=== PATIENT | female | born 1995 | race Caucasian/White ===

== ENCOUNTER 2017-01-23 11:17 | Inpatient (IN) | payer MEDICAID ==
[2017-01-23] MEDS ORDERED: STADOL 2 MG IV PRN (11:41)
[2017-01-23] MEDS ORDERED: Zofran 4 MG/2 ML VIAL IV PRN (11:41)
[2017-01-23] MEDS ORDERED: Nubain 10 MG/ML IV PRN (11:41)
[2017-01-23] MEDS ORDERED: TYLENOL EXTRA STRENGTH 500 MG PO PRN (11:41)
[2017-01-23] MEDS ORDERED: XYLOCAINE 1% HCL 20 ML MDV IJ PRN (11:41)
[2017-01-23] MEDS ORDERED: Phenergan 25 MG INJ IV PRN (11:41)
[2017-01-23] MEDS ORDERED: Sodium Chloride 0.9% 1000 ML 1,000 ML ONE (11:42)
[2017-01-23] MEDS ORDERED: OB EPIDURAL NAROPIN/SUFENTANIL IN NACL EPIDURAL PRN (11:44)
[2017-01-23] MEDS ORDERED: Ephedrine Sulfate 50 MG/ML IV PRN (11:44)
[2017-01-23] MEDS ORDERED: Lactated Ringers 1,000 ML IV ONE (11:44)
[2017-01-23] MEDS ORDERED: PITOCIN 30 UNITS/ LR 500 ML 500 ML IV SCH (12:00)
[2017-01-23] MEDS ORDERED: Lactated Ringers 1,000 ML IV SCH (12:00)
[2017-01-23 12:07] LABS: BASOPHIL % 0.2 % (0.0-0.4); Eosinophil % 0.4 % (0.00-5.0); Granulocytes % 71.1 % (36.0-66.0); Lymphocytes % 18.7 % (24.0-44.0); Mean Cell Volume 93.9 fl (78-100); Mean Platelet Volume 10.1 fl (6-9.5); Monocytes % 9.6 % (0.0-12.0); Platelet Count 242 K/mm3 (150-450); Red Blood Count 3.63 M/mm3 (4.1-5.4); Red Cell Distribution Width 13.2 % (11.5-14.0)
[2017-01-23 14:36] VITALS: O2SAT 98
[2017-01-23] MEDS ORDERED: Dermoplast Spray TP PRN (17:10)
[2017-01-23] MEDS ORDERED: NORCO 5/325 MG PO PRN (17:10)
[2017-01-23] MEDS ORDERED: Ambien 10 MG PO PRN (17:10)
[2017-01-23] MEDS ORDERED: Mylicon 80MG PO PRN (17:10)
[2017-01-23] MEDS ORDERED: CORTISONE 1% CREAM TP PRN (17:10)
[2017-01-23] MEDS ORDERED: LANSINOH 40 GM TOP PRN (17:10)
[2017-01-23] MEDS ORDERED: TUCKS TP PRN (17:10)
[2017-01-23] MEDS ORDERED: Rhogam Plus 300 MCG IM ONE (19:22)
[2017-01-23] MEDS: Colace 100 MG PO SCH (22:10)
[2017-01-24 05:50] LABS: BASOPHIL % 0.2 % (0.0-0.4); Eosinophil % 0.5 % (0.00-5.0); Granulocytes % 70.6 % (36.0-66.0); Lymphocytes % 20.6 % (24.0-44.0); Mean Cell Volume 95.8 fl (78-100); Mean Corpuscular Hemoglobin 30.2 pg (26-32); Mean Platelet Volume 10.1 fl (6-9.5); Monocytes % 8.1 % (0.0-12.0); Platelet Count 198 K/mm3 (150-450); Red Blood Count 3.31 M/mm3 (4.1-5.4); Red Cell Distribution Width 12.9 % (11.5-14.0); White Blood Count 9.6 K/mm3 (4.0-10.5)
[2017-01-24] MEDS: MOTRIN 400 MG PO PRN ×2 (07:03→13:02)
[2017-01-24] MEDS: FERREX 150 PO SCH (10:06)
[2017-01-24] MEDS: Colace 100 MG PO SCH (10:06)
[2017-01-24] MEDS: TYLENOL EXTRA STRENGTH 500 MG PO PRN (15:40)
[2017-01-25] MEDS: TYLENOL EXTRA STRENGTH 500 MG PO PRN (02:04)
[2017-01-25] MEDS: Colace 100 MG PO SCH ×2 (02:06→11:36)
--- NOTE | 2017-01-25 08:22 | PCM.DS ---
Discharge Summary Date of Admission: 01/23/17 11:17 Admitting Physician: VIBHA CARUSO Consults: Consults on Case 01/23/17 11:44 Notify Anesthesia Provider PRN 01/23/17 17:11 Notify Physician ROUTINE Primary Care Provider: VIBHA CARUSO Allergies Allergies No Known Drug Allergies Allergy (Verified 01/23/17 13:47) Hospital Summary - Hospital Course Hospital Course: Pt is 21 yo who came in at 39wk 2d in active labor. After AROM she dilated and delivered an 8lb 0oz viable baby boy. No vaginal lacerations requiring repair. She recovered uneventfully. Just requiring motrin for pain. She is . Denies dizziness when standing. Bleeding is decreasing. She will be discharged home today when baby is 48 h old. - Vitals & Intake/Output Vital Signs: Vital Signs Temperature 97.9 F 01/25/17 03:00 Pulse Rate 66 01/25/17 03:00 Respiratory Rate 18 01/25/17 03:00 Blood Pressure 109/67 01/25/17 03:00 O2 Sat by Pulse Oximetry 98 01/23/17 13:00 Intake & Output: Intake & Output 01/22/17 01/23/17 01/24/17 01/25/17 11:59 11:59 11:59 11:59 Intake Total 5001 3400 Output Total 1000 Balance 4001 3400 Weight 72.575 kg - Lab Result Diagrams: 01/24/17 05:39 Discharge Exam General Appearance: no apparent distress, alert Neurologic Exam: oriented x 3, cooperative Skin Exam: normal color, warm, dry, No rash Ears, Nose, Throat Exam: moist mucous membranes Neck Exam: normal inspection Respiratory Exam: normal breath sounds, lungs clear, No crackles/rales, No rhonchi, No wheezing Cardiovascular Exam: regular rate/rhythm, normal heart sounds, No murmur Gastrointestinal/Abdomen Exam: soft, normal bowel sounds, other (fundus firm over), No distention Extremity Exam: normal inspection, No pedal edema, No swelling Final Diagnosis/Problem List - Final Discharge Diagnosis/Problem (1) Spontaneous vaginal delivery Current Visit: No Status: Acute Assessment & Plan: Doing great. Home today. F/u with me in 4-6 wks. (2) Anemia Current Visit: Yes Status: Acute Assessment & Plan: mild, hgb 10.0 after delivery. Will send her home on low dose of iron for 2 weeks. - Discharge Disposition: Home, Self-Care Condition: Stable Prescriptions: New Ferrous Sulfate 325 mg [Feosol 325 mg] 325 mg PO DAILY #14 tablet Continue Vits W-Ca,Fe,FA(<1Mg) [] 1 each PO DAILY Follow up with: VIBHA CARUSO [Primary Care Provider] - 1 Week
[2017-01-25] MEDS: FERREX 150 PO SCH (11:36)
[2017-01-25 18:12] VITALS: BP 114/72; PULSE 69
== END 2017-01-25 18:15 | disposition home or self-care (01) | DRG 775 ==
LOC: OBSVTOIN 11:17 → OB 11:17
PROVIDERS: ADMIT Family Medicine; ATTEND Family Medicine
PROC: 10E0XZZ Delivery of Products of Conception, External Approach (ICD-10-PCS; principal; 2017-01-23)
DX: O75.5 Delayed delivery after artificial rupture of membranes (principal); Z3A.39 39 weeks gestation of pregnancy; Z37.0 Single live birth; D64.9 Anemia, unspecified
CPT/HCPCS: 01967; 36415; 80307; 85025; 85461; 86850; 86870; 86900; 86901; 94799; 96372; G0378; J2590; J2790; J2795; A9270-GY

== ENCOUNTER 2018-02-23 10:48 | Emergency (ER) | payer MEDICAID ==
[2018-02-23 11:09] VITALS: O2SAT 99
[2018-02-23] MEDS ORDERED: Sodium Chloride 0.9% 1000 ML 1,000 ML IV STA (11:17)
--- NOTE | 2018-02-23 11:17 | ERPHSYRPT ---
- History of Present Illness Time Seen by Provider: 02/23/18 11:11 Patient Subjective Stated Complaint: arms and legs are numb and she passed out Triage Nursing Assessment: Pt c/o of numbness in bilateral arms and legs upon waking up this morning, reports passing out while she was getting dressed and also after she was walking through the house, I pricked her finger for an accucheck and she flinched so she felt the poke, hx of same problems in the past at this ER, vitals wnl, diminished strength in arms and legs, PERRL, pulses normal Physician History: 22 y/o white female presents with bilat upper and lower ext numbness since this am. pt feels she might dehydrated. pt passed out twice this am. pt walked into the ED on her own. pt was drinking etoh last pm. similar episode in past after etoh consumption per pt. given ivf and sx resolved. Timing/Duration: today Severity: moderate Character of Deficits: new weakness Deficits: off balance, weak Baseline/Normal Cognition: alert oriented x 3 Current Cognition: alert oriented x 3 Baseline Gait: walks w/o assistance Associated Symptoms: weakness, paresthesia (bilat upper and lower ex), No loss of consciousness, No nausea, No vomiting Allergies/Adverse Reactions: No Known Drug Allergies Allergy (Verified 02/23/18 11:09) Home Medications: No Reportable Medications [No Reported Medications] 02/23/18 [History] Hx Tetanus, Diphtheria Vaccination/Date Given: No Hx Influenza Vaccination/Date Given: Yes Hx Pneumococcal Vaccination/Date Given: No - Review of Systems Constitutional: Weakness Eyes: No Symptoms Ears, Nose, & Throat: No Symptoms Respiratory: No Symptoms Cardiac: No Symptoms Abdominal/Gastrointestinal: No Symptoms Genitourinary Symptoms: No Symptoms Musculoskeletal: No Symptoms Skin: No Symptoms Neurological: Parasthesia Psychological: No Symptoms Endocrine: No Symptoms Hematologic/Lymphatic: No Symptoms Immunological/Allergic: No Symptoms All Other Systems: Reviewed and Negative - Past Medical History Pertinent Past Medical History: No Neurological History: No Pertinent History ENT History: No Pertinent History Cardiac History: No Pertinent History Respiratory History: No Pertinent History Endocrine Medical History: No Pertinent History Musculoskeletal History: No Pertinent History GI Medical History: No Pertinent History History: No Pertinent History Psycho-Social History: No Pertinent History Female Reproductive Disorders: No Pertinent History, Other Other Medical History: been to hospital in the past for syncope episodes. hypoglycemic - Past Surgical History Past Surgical History: No Neuro Surgical History: No Pertinent History Cardiac: No Pertinent History Respiratory: No Pertinent History Gastrointestinal: No Pertinent History Genitourinary: No Pertinent History Musculoskeletal: No Pertinent History Female Surgical History: No Pertinent History - Social History Smoking Status: Current every day smoker How long have you smoked: 10 years Exposure to second hand smoke: Yes Drug Use: marijuana Patient Lives Alone: No - Female History Hx Last Menstrual Period: 02/17/2018 Hx Now: No - Nursing Vital Signs Nursing Vital Signs: Initial Vital Signs Temperature 97.8 F 02/23/18 10:55 Pulse Rate 73 02/23/18 10:55 Blood Pressure 128/79 02/23/18 10:55 O2 Sat by Pulse Oximetry 99 02/23/18 10:55 Pain Scale Pain Intensity 0 - Jocelyn Coma Scale Best Eye Response (Jocelyn): (4) open spontaneously Best Verbal Response (Jocelyn): (5) oriented Best Motor Response (Jocelyn): (6) obeys commands Jocelyn Total: 15 - Physical Exam General Appearance: no apparent distress, alert, anxiety Eye Exam: bilateral eye: normal inspection, PERRL, EOMI Ears, Nose, Throat Exam: normal ENT inspection, TMs normal, dry mucous membranes Neck Exam: normal inspection, non-tender, supple, full range of motion Respiratory: normal breath sounds, lungs clear, airway intact, No chest tenderness, No respiratory distress, No accessory muscle use, No rhonchi, No wheezing, No stridor Cardiovascular: regular rate/rhythm, normal heart sounds, normal peripheral pulses Gastrointestinal: soft, normal bowel sounds, No tenderness, No guarding, No rebound Pelvic Exam: not done Rectal Exam: not done Back Exam: normal inspection, normal range of motion, No CVA tenderness, No vertebral tenderness Extremity Exam: normal inspection, normal range of motion, pelvis stable Mental Status: alert, oriented x 3, 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 Exam: normal hearing, normal speech Coordination/Gait: normal finger to nose, normal gait Motor/Sensory: no motor deficit, no sensory deficit Skin Exam: normal color, warm SpO2 Interpretation: normal SpO2: 99 Oxygen Delivery: Room Air Ordered Tests: Active Orders 24 hr Category Date Time Status Clean Catch Urine Specimen STAT Care 02/23/18 11:17 Active IV Insertion STAT Care 02/23/18 11:17 Active HEAD WITHOUT CONTRAST [CT] Stat Exams 02/23/18 11:25 Taken Alcohol [ETHYL ALCOHOL] Stat Lab 02/23/18 11:31 Completed CBC W DIFF Stat Lab 02/23/18 11:31 Completed CMP Stat Lab 02/23/18 11:31 Completed CULTURE,URINE Stat Lab 02/23/18 11:31 Received HCG,QUALITATIVE URINE Stat Lab 02/23/18 11:29 Completed UA W/RFX UR CULTURE Stat Lab 02/23/18 11:31 Completed Urine Triage Profile Stat Lab 02/23/18 11:29 Completed Medication Summary Discontinued Medications Generic Name Dose Route Start Last Admin Trade Name Elaina PRN Reason Stop Dose Admin Sodium Chloride 1,000 mls @ 999 mls/hr 02/23/18 11:17 02/23/18 12:44 Sodium Chloride 0.9% 1000 Ml IV 02/23/18 12:17 Infused .Q1H1M STA Infusion Sodium Chloride Confirm 02/23/18 11:31 Sodium Chloride 0.9% 1000 Ml Administered 02/23/18 11:32 Dose 1,000 mls @ ud .ROUTE .[facility] Lab/Rad Data: Laboratory Result Diagrams 02/23/18 11:31 02/23/18 11:31 Laboratory Results 02/23/18 02/23/18 02/23/18 Range/Units 11:31 11:31 11:31 WBC 5.6 (4.0-10.5) K/mm3 RBC 4.31 (4.1-5.4) M/mm3 Hgb 13.8 (12.0-16.0) gm/dl Hct 42.5 (35-47) % MCV 98.6 (78-100) fl MCH 32.0 (26-32) pg MCHC 32.5 (32-36) g/dl RDW 13.2 (11.5-14.0) % Plt Count 318 (150-450) K/mm3 MPV 9.6 H (6-9.5) fl Gran % 60.3 (36.0-66.0) % Eos # (Auto) 0.10 (0-0.5) Absolute Lymphs (auto) 1.48 (1.0-4.6) Absolute Monos (auto) 0.64 (0.0-1.3) Lymphocytes % 26.3 (24.0-44.0) % Monocytes % 11.4 (0.0-12.0) % Eosinophils % 1.8 (0.00-5.0) % Basophils % 0.2 (0.0-0.4) % Absolute Granulocytes 3.39 (1.4-6.9) Basophils # 0.01 (0-0.4) Sodium 141 (137-145) mmol/L Potassium 3.6 (3.5-5.1) mmol/L Chloride 103 (98-107) mmol/L Carbon Dioxide 27 (22-30) mmol/L Anion Gap 15.5 H (5-15) MEQ/L BUN 15 (7-17) mg/dL Creatinine 0.61 (0.52-1.04) mg/dL Estimated GFR > 60.0 ML/MIN Glucose 104 (74-106) mg/dL Calcium 9.5 (8.4-10.2) mg/dL Total Bilirubin 1.00 (0.2-1.3) mg/dL AST 21 (14-36) U/L ALT 18 (0-35) U/L Alkaline Phosphatase 60 (38-126) U/L Serum Total Protein 7.2 (6.3-8.2) g/dL Albumin 4.2 (3.5-5.0) g/dL Urine Color (YELLOW) Urine Appearance (CLEAR) Urine pH (5-6) Ur Specific Bronson (1.005-1.025) Urine Protein (Negative) Urine Ketones (NEGATIVE) Urine Blood (0-5) Jensen/ul Urine Nitrite (NEGATIVE) Urine Bilirubin (NEGATIVE) Urine Urobilinogen (0-1) mg/dL Ur Leukocyte Esterase (NEGATIVE) Urine WBC (Auto) (0-5) /HPF Urine RBC (Auto) (0-2) /HPF U Epithel Cells (Auto) (FEW) /HPF Urine Bacteria (Auto) (NEGATIVE) /HPF Amorphous Crystals (NEGATIVE) /HPF Urine Mucus (Auto) (NEGATIVE) /HPF Urine Culture Reflexed (NO) Urine Glucose (NEGATIVE) mg/dL Urine HCG, Qual (Negative) Urine Opiates Level (NEGATIVE) Ur Methadone (NEGATIVE) Urine Barbiturates (NEGATIVE) Ur Phencyclidine (PCP) (NEGATIVE) Urine Amphetamine (NEGATIVE) U Benzodiazepine Level (NEGATIVE) Urine Cocaine (NEGATIVE) Urine Marijuana (THC) (NEGATIVE) Ethyl Alcohol < 10 (0-10) mg/dL 02/23/18 02/23/18 02/23/18 Range/Units 11:31 11:29 11:29 WBC (4.0-10.5) K/mm3 RBC (4.1-5.4) M/mm3 Hgb (12.0-16.0) gm/dl Hct (35-47) % MCV (78-100) fl MCH (26-32) pg MCHC (32-36) g/dl RDW (11.5-14.0) % Plt Count (150-450) K/mm3 MPV (6-9.5) fl Gran % (36.0-66.0) % Eos # (Auto) (0-0.5) Absolute Lymphs (auto) (1.0-4.6) Absolute Monos (auto) (0.0-1.3) Lymphocytes % (24.0-44.0) % Monocytes % (0.0-12.0) % Eosinophils % (0.00-5.0) % Basophils % (0.0-0.4) % Absolute Granulocytes (1.4-6.9) Basophils # (0-0.4) Sodium (137-145) mmol/L Potassium (3.5-5.1) mmol/L Chloride (98-107) mmol/L Carbon Dioxide (22-30) mmol/L Anion Gap (5-15) MEQ/L BUN (7-17) mg/dL Creatinine (0.52-1.04) mg/dL Estimated GFR ML/MIN Glucose (74-106) mg/dL Calcium (8.4-10.2) mg/dL Total Bilirubin (0.2-1.3) mg/dL AST (14-36) U/L ALT (0-35) U/L Alkaline Phosphatase (38-126) U/L Serum Total Protein (6.3-8.2) g/dL Albumin (3.5-5.0) g/dL Urine Color YELLOW (YELLOW) Urine Appearance TURBID (CLEAR) Urine pH 6.0 (5-6) Ur Specific Bronson 1.020 (1.005-1.025) Urine Protein NEGATIVE (Negative) Urine Ketones NEGATIVE (NEGATIVE) Urine Blood NEGATIVE (0-5) Jensen/ul Urine Nitrite NEGATIVE (NEGATIVE) Urine Bilirubin NEGATIVE (NEGATIVE) Urine Urobilinogen 2 (0-1) mg/dL Ur Leukocyte Esterase NEGATIVE (NEGATIVE) Urine WBC (Auto) 0-2 (0-5) /HPF Urine RBC (Auto) 0-2 (0-2) /HPF U Epithel Cells (Auto) MODERATE (FEW) /HPF Urine Bacteria (Auto) MODERATE (NEGATIVE) /HPF Amorphous Crystals MANY (NEGATIVE) /HPF Urine Mucus (Auto) MODERATE (NEGATIVE) /HPF Urine Culture Reflexed YES (NO) Urine Glucose NEGATIVE (NEGATIVE) mg/dL Urine HCG, Qual NEGATIVE (Negative) Urine Opiates Level NEGATIVE (NEGATIVE) Ur Methadone NEGATIVE (NEGATIVE) Urine Barbiturates NEGATIVE (NEGATIVE) Ur Phencyclidine (PCP) NEGATIVE (NEGATIVE) Urine Amphetamine POSITIVE (NEGATIVE) U Benzodiazepine Level NEGATIVE (NEGATIVE) Urine Cocaine NEGATIVE (NEGATIVE) Urine Marijuana (THC) POSITIVE (NEGATIVE) Ethyl Alcohol (0-10) mg/dL - Progress Progress: improved, re-examined Progress Note: 02/23/18 12:48 ct brain-no acute intracranial process - Departure Time of Disposition: 12:48 Departure Disposition: Home Clinical Impression: Altered mental status Condition: Stable Critical Care Time: No Referrals: VIBHA CARUSO [Primary Care Provider] - Additional Instructions: drink plenty of fluids. avoid any and all illicit drug use. follow up with primary doctor for further management
[2018-02-23] MEDS ORDERED: Sodium Chloride 0.9% 1000 ML 1,000 ML ONE (11:31)
[2018-02-23 11:53] LABS: Amphetamine,Urine POSITIVE (NEGATIVE); Barbiturate,Urine NEGATIVE (NEGATIVE); Benzodiazepine,Urine NEGATIVE (NEGATIVE); Cocaine,Urine NEGATIVE (NEGATIVE); Methadone,Urine NEGATIVE (NEGATIVE); Opiate,Urine NEGATIVE (NEGATIVE); PCP,Urine NEGATIVE (NEGATIVE); THC,Urine POSITIVE (NEGATIVE)
[2018-02-23 11:55] LABS: ALBUMIN 4.2 g/dL (3.5-5.0); ALKALINE PHOSPHATASE 60 U/L (38-126); ANION GAP 15.5 MEQ/L (5-15); BLOOD UREA NITROGEN 15 mg/dL (7-17); CHLORIDE 103 mmol/L (98-107); Calcium 9.5 mg/dL (8.4-10.2); Carbon Dioxide 27 mmol/L (22-30); Creatinine 1 0.61 mg/dL (0.52-1.04); Glucose 104 mg/dL (74-106); Potassium 3.6 mmol/L (3.5-5.1); SGOT/AST 21 U/L (14-36); SGPT/ALT 18 U/L (0-35); SODIUM 141 mmol/L (137-145); Total Protein 7.2 g/dL (6.3-8.2)
[2018-02-23 11:56] LABS: Amourphous Crystal MANY /HPF (NEGATIVE); Appearance TURBID (CLEAR); Bacteria MODERATE /HPF (NEGATIVE); Bilirubin NEGATIVE (NEGATIVE); Blood NEGATIVE Ery/ul (0-5); Epithelial Cells MODERATE /HPF (FEW); Glucose NEGATIVE (NEGATIVE); Ketones NEGATIVE (NEGATIVE); Leukocyte Esterase NEGATIVE (NEGATIVE); Mucus MODERATE /HPF (NEGATIVE); Nitrite NEGATIVE (NEGATIVE); Protein,Urine Dip NEGATIVE (Negative); RBC 0-2 /HPF (0-2); Urobilinogen 2 mg/dL (0-1); WBC 0-2 /HPF (0-5)
[2018-02-23 12:25] LABS: BASOPHIL % 0.2 % (0.0-0.4); Basophil (Absolute #) 0.01 (0-0.4); Eosinophil % 1.8 % (0.00-5.0); Granulocytes % 60.3 % (36.0-66.0); Hematocrit 42.5 % (35-47); Hemoglobin 13.8 gm/dl (12.0-16.0); Lymphocyte (Absolute #) 1.48 (1.0-4.6); Lymphocytes % 26.3 % (24.0-44.0); Mean Cell Volume 98.6 fl (78-100); Mean Corpuscular Hgb Concent. 32.5 g/dl (32-36); Mean Platelet Volume 9.6 fl (6-9.5); Monocyte (Absolute #) 0.64 (0.0-1.3); Monocytes % 11.4 % (0.0-12.0); Platelet Count 318 K/mm3 (150-450); Red Blood Count 4.31 M/mm3 (4.1-5.4); Red Cell Distribution Width 13.2 % (11.5-14.0); White Blood Count 5.6 K/mm3 (4.0-10.5)
[2018-02-23 13:28] VITALS: BP 126/82; PULSE 72
--- NOTE | 2018-02-23 18:20 | XRAY ---
Indication: Syncope, dizziness, and arm/leg numbness following head injury. Multiple contiguous axial images obtained through the head without contrast. Comparison: None Normal appearing brain parenchyma, ventricles, and bony calvarium. Visualized paranasal sinuses and mastoid air cells are clear. Impression: Normal CT head without contrast exam. Comment: Preliminary interpretation was made by [facility]. No discrepancy. CTDI 52.08
== END 2018-02-23 12:50 | disposition home or self-care (01) ==
LOC: ED 10:48
DX: R41.82 Altered mental status, unspecified (principal); R20.0 Anesthesia of skin; R53.1 Weakness
CPT/HCPCS: 36415; 70450; 80053; 80307; 81001; 84703; 85025; 87086; 96360; 99284; G0480

== ENCOUNTER 2020-05-10 16:50 | Emergency (ER) | payer MEDICAID, OTHER ==
[2020-05-10] MEDS ORDERED: Augmentin 875-125 Tablet PO ONE (17:11)
[2020-05-10] MEDS ORDERED: Adacel Vial IM ONE ×2 (17:11→17:16)
[2020-05-10] MEDS ORDERED: Augmentin 875-125 Tablet ONE (17:15)
--- NOTE | 2020-05-10 17:18 | ERPHSYRPT ---
- History of Present Illness Time Seen by Provider: 05/10/20 17:00 Source: patient Exam Limitations: no limitations Patient Subjective Stated Complaint: dog bite to R hand Triage Nursing Assessment: pt to ED c/o dog bite to R hand that occured yest raynaay. pt has one puncture wound to center of palm on R hand. rates 3/10 pain now that feels sharp and does not radiate. no diff with ROM. Physician History: Patient is a 24-year-old female presents to our ED for evaluation and treatment of a dog bite to her right hand. Patient was bitten by a family member's dog yesterday. The dog is fully vaccinated. Tetanus is not up-to-date. No other injuries reported. Patient is otherwise healthy. She voices no other complaints or concerns at this time. No upper extremity numbness tingling or weakness. No hand swelling at this time. No lymphadenopathy. Pain rated 3 out of 10 at its worst. Patient currently declines pain medication as she is not in any discomfort. Patient voices no other complaints or concerns at this time. Occurred: yesterday Method of Injury: other (Dog bite) Quality: sharpness Severity of Pain-Max: moderate Severity of Pain-Current: mild Extremities Pain Location: hand: right Modifying Factors: Improves With: movement Associated Symptoms: none Allergies/Adverse Reactions: No Known Drug Allergies Allergy (Verified 05/10/20 17:03) Hx Tetanus, Diphtheria Vaccination/Date Given: No Hx Influenza Vaccination/Date Given: No Hx Pneumococcal Vaccination/Date Given: No Immunizations Up to Date: No Travel Risk - International Travel Have you traveled outside of the country in past 3 weeks: No - Coronavirus Screening Are you exhibiting any of the following symptoms?: No Close contact with a COVID-19 positive Pt in past 14-21 Days: No - Review of Systems Constitutional: No Symptoms, No Fever, No Chills Eyes: No Symptoms Ears, Nose, & Throat: No Symptoms Respiratory: No Symptoms, No Cough, No Dyspnea Cardiac: No Symptoms, No Chest Pain, No Edema, No Syncope Abdominal/Gastrointestinal: No Symptoms, No Abdominal Pain, No Nausea, No Vomiting, No Diarrhea Genitourinary Symptoms: No Symptoms, No Dysuria Musculoskeletal: No Symptoms, No Back Pain, No Neck Pain Skin: No Symptoms, No Rash Neurological: No Symptoms, No Dizziness, No Focal Weakness, No Sensory Changes Psychological: No Symptoms Endocrine: No Symptoms Hematologic/Lymphatic: No Symptoms Immunological/Allergic: No Symptoms All Other Systems: Reviewed and Negative - Past Medical History Pertinent Past Medical History: Yes Neurological History: No Pertinent History ENT History: No Pertinent History Cardiac History: No Pertinent History Respiratory History: No Pertinent History Endocrine Medical History: No Pertinent History Musculoskeletal History: No Pertinent History GI Medical History: No Pertinent History History: No Pertinent History Psycho-Social History: No Pertinent History Female Reproductive Disorders: No Pertinent History, Other Other Medical History: been to hospital in the past for syncope episodes. hypoglycemic - Past Surgical History Past Surgical History: No Neuro Surgical History: No Pertinent History Cardiac: No Pertinent History Respiratory: No Pertinent History Gastrointestinal: No Pertinent History Genitourinary: No Pertinent History Musculoskeletal: No Pertinent History Female Surgical History: No Pertinent History - Social History Smoking Status: Light tobacco smoker How long have you smoked: 10 years Exposure to second hand smoke: Yes Drug Use: none Patient Lives Alone: No - Female History Hx Last Menstrual Period: 2 weeks ago Hx Now: No - Nursing Vital Signs Nursing Vital Signs: Initial Vital Signs Temperature 98.2 F 05/10/20 16:55 Pulse Rate 88 05/10/20 16:55 Respiratory Rate 18 05/10/20 16:55 Blood Pressure 125/61 05/10/20 16:55 O2 Sat by Pulse Oximetry 100 05/10/20 16:55 Pain Scale Pain Intensity 3 - Physical Exam General Appearance: no apparent distress, alert, other (Patient sitting up in bed. She is conversant well-appearing and in no acute distress.) Eyes, Ears, Nose, Throat Exam: moist mucous membranes Neck Exam: normal inspection, non-tender, supple, full range of motion Cardiovascular/Respiratory Exam: chest non-tender, normal breath sounds, regular rate/rhythm, no respiratory distress Abdominal Exam: non-tender, soft, No guarding Back Exam: normal inspection, normal range of motion, No vertebral tenderness Shoulder Exam: normal inspection, non-tender, no evidence of injury Elbow/Forearm Exam: normal inspection, non-tender, no evidence of injury, normal ROM Wrist Exam: normal inspection, non-tender, no evidence of injury, normal ROM Hand Exam: normal ROM, laceration (There is a small puncture wound at the dorsal aspect the patient's right hand. No lymphangitis. No lymphadenopathy. No swelling. The area is minimally tender. Patient denies foreign body sensation in her hand. Compartments are soft. Cap refill less than 2 seconds.), No limited ROM, No nail injury, No stiffness, No swelling Neuro/Tendon Exam: normal sensation, normal motor functions Mental Status Exam: alert, oriented x 3, cooperative Skin Exam: normal color, warm, dry SpO2 Interpretation: normal SpO2: 100 O2 Delivery: Room Air - Course Nursing assessment & vital signs reviewed: Yes Ordered Tests: Medication Summary Discontinued Medications Generic Name Dose Route Start Last Admin Trade Name Elaina PRN Reason Stop Dose Admin Amoxicillin/Clavulanate Potassium 875 mg 05/10/20 17:11 05/10/20 17:17 Augmentin 875-125 Tablet PO 05/10/20 17:12 875 mg STAT ONE Administration Amoxicillin/Clavulanate Potassium Confirm 05/10/20 17:15 Augmentin 875-125 Tablet Administered 05/10/20 17:16 Dose 875 mg .ROUTE .[facility]-MED ONE Diphtheria/Tetanus/Acell Pertussis 0.5 ml 05/10/20 17:11 05/10/20 17:17 Adacel Vial IM 05/10/20 17:12 0.5 ml .ONCE ONE Administration Diphtheria/Tetanus/Acell Pertussis Confirm 05/10/20 17:16 Adacel Vial Administered 05/10/20 17:17 Dose 0.5 ml IM .STK-MED ONE - Progress Progress: improved Progress Note: 05/10/20 17:26 Patient reassessed. She feels well. Patient continues to decline pain medication. At this point there is no indication for x-ray. Patient denies foreign body sensation in her hand. The extremity is neurovascular intact distally. Extremities pink warm well perfused. Patient received a tetanus update. Patient received a dose of Augmentin. A prescription for Augmentin was forwarded the patient's pharmacy. Patient agrees to follow-up with her primary care doctor within 48 hours for reevaluation. She voices no other complaints or concerns at this time. Counseled pt/family regarding: diagnosis, need for follow-up - Departure Departure Disposition: Home Clinical Impression: Dog bite Condition: Stable Critical Care Time: No Referrals: VIBHA SABILLON [Primary Care Provider] - Additional Instructions: Discharge/Care Plan MITRA LAWRENCE was seen on 05/10/20 in the Emergency Room. The patient was counseled regarding Diagnosis,Lab results, Imaging studies, need for follow up and when to return to the Emergency Room. Prescriptions given: Discharge Note I have spoken with the patient and/or caregivers. I have explained the patient's condition, diagnosis and treatment plan based on the information available to me at this time. I have answered the patient's and/or caregiver's questions and addressed any concerns. The patient and/or caregivers have as good understanding of the patient's diagnosis, condition and treatment plan as can be expected at this point. The vital signs have been stable. The patient's condition is stable and appropriate for discharge from the emergency department. The patient will pursue further outpatient evaluation with the primary care physician or other designated or consulting physician as outlined in the discharge instructions. The patient and/or caregivers are agreeable to this plan of care and follow-up instructions have been explained in detail. The patient and/or caregivers have received these instruction. The patient/and or caregivers are aware that any significant change in condition or worsening of symptoms should prompt an immediate return to this or the closest emergency department or call 911. Prescriptions: Amox Tr/Potass Clav. 875 mg [Augmentin 875-125 Tablet] 875 mg PO BID 7 Days #14 tablet
[2020-05-10 17:38] VITALS: BP 117/58; PULSE 84; O2SAT 98
== END 2020-05-10 17:36 | disposition home or self-care (01) ==
LOC: ED 16:50
DX: S61.431A Puncture wound without foreign body of right hand, initial encounter (principal); W54.0XXA Bitten by dog, initial encounter; Y93.9 Activity, unspecified; Y92.9 Unspecified place or not applicable
CPT/HCPCS: 90471; 90715; 99283; A9270-GY

== ENCOUNTER 2022-05-22 15:15 | Emergency (ER) | payer OTHER ==
[2022-05-22 15:32] VITALS: BP 105/62; PULSE 74; O2SAT 98
--- NOTE | 2022-05-22 15:33 | ERPHSYRPT ---
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 She was dazed but she is states she does not think she passed out. However, she did have quite a bit of nosebleed which has stopped prior to arrival to the emergency department. She has a headache and her nose does hurt. There is no active bleeding at this time. She did not have a syncopal episode. She merely tripped over a bag of dog food. Occurred: just prior to arrival Reason for Fall: unknown Injuries/Pain Location: head, face Loss of Consciousness: no loss of consciousness Severity of Pain-Max: mild Severity of Pain-Current: mild Associated Symptoms (Fall): denies symptoms Allergies/Adverse Reactions: No Known Drug Allergies Allergy (Verified 05/22/22 15:33) Home Medications: No Reportable Medications [No Reported Medications] 05/22/22 [History] Hx Tetanus, Diphtheria Vaccination/Date Given: No Hx Influenza Vaccination/Date Given: No Hx Pneumococcal Vaccination/Date Given: No Travel Risk - International Travel Have you traveled outside of the country in past 3 weeks: No - Coronavirus Screening Are you exhibiting any of the following symptoms?: No Close contact with a COVID-19 positive Pt in past 14-21 Days: No - Review of Systems Constitutional: No Symptoms Eyes: No Symptoms Ears, Nose, & Throat: Nose Pain (Swelling) Respiratory: No Symptoms Cardiac: No Symptoms Abdominal/Gastrointestinal: No Symptoms Genitourinary Symptoms: No Symptoms Musculoskeletal: No Symptoms Skin: No Symptoms Neurological: No Symptoms Psychological: No Symptoms Endocrine: No Symptoms Hematologic/Lymphatic: No Symptoms Immunological/Allergic: No Symptoms All Other Systems: Reviewed and Negative - Past Medical History Pertinent Past Medical History: Yes Neurological History: No Pertinent History ENT History: No Pertinent History Cardiac History: No Pertinent History Respiratory History: No Pertinent History Endocrine Medical History: No Pertinent History Musculoskeletal History: No Pertinent History GI Medical History: No Pertinent History History: No Pertinent History Psycho-Social History: No Pertinent History Female Reproductive Disorders: No Pertinent History, Other Other Medical History: been to hospital in the past for syncope episodes. hypoglycemic - Past Surgical History Past Surgical History: No Neuro Surgical History: No Pertinent History Cardiac: No Pertinent History Respiratory: No Pertinent History Gastrointestinal: No Pertinent History Genitourinary: No Pertinent History Musculoskeletal: No Pertinent History Female Surgical History: No Pertinent History - Social History Smoking Status: Light tobacco smoker How long have you smoked: 10 years Exposure to second hand smoke: Yes Drug Use: none Patient Lives Alone: No - Nursing Vital Signs Nursing Vital Signs: Initial Vital Signs Temperature 98.3 F 05/22/22 15:24 Pulse Rate 74 05/22/22 15:24 Blood Pressure 105/62 05/22/22 15:24 O2 Sat by Pulse Oximetry 98 05/22/22 15:24 Pain Scale Pain Intensity 0 - Jocelyn Coma Score Best Eye Response (Jocelyn): (4) open spontaneously Best Verbal Response (Jocelyn): (5) oriented Best Motor Response ([place]): (6) obeys commands [place] Total: 15 - Physical Exam General Appearance: no apparent distress, alert, anxiety Head Injury: swelling (Nasal bridge), tenderness (Nasal bridge) Eye Exam: PERRL/EOMI, eyes nml inspection ENT Exam: airway nml Neck Exam: supple, trachea midline, full range of motion, normal alignment, normal inspection Respiratory/Chest Exam: No chest tenderness, No respiratory distress, No ecchymosis, No crepitus Gastrointestinal Exam: No tenderness Rectal Exam: not done Back Exam: normal inspection, normal range of motion, No CVA tenderness, No vertebral tenderness Extremity Exam: normal inspection, normal range of motion, capillary refill <3 sec, pelvis stable Neurologic Exam: alert, oriented x 3, cooperative, 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 CT scan without contrast of the facial bones shows mild paranasal sinus disease and mild septal deviation. No acute fractures or dislocations. This patient's medical issue is 1 of low complexity. The complexity and the work-up were determined by review of the patient's past medical history, review of the patient's medication list, review of the patient's drug allergy list, history of present illness and physical findings on examination. The work-up includes CAT scan of the head and facial bones. Discharge plan is to use Tylenol and ibuprofen for pain control. Ice pack to the nose. Follow-up with primary care physician for any further evaluation or management Counseled pt/family regarding: diagnosis, need for follow-up, rad results Medical Desision Making - Independent Historian Additional History obtained from: Family - Discussion of managment Agreed on:: Treatment plan, need for follow-up - Diagnostic Testing Diagnostic test were ordered, analyzed, and reviewed by me: Yes Radiological Interpretation: Reviewed by me, Teleradiologist Report - Risk of complications Low Risk: Low risk of morbidity from additional dx testing or treatment - Departure Departure Disposition: Home Clinical Impression: Fall with no significant injury, Contusion Condition: Stable Critical Care Time: No Referrals: ZAKIYA WYNN NP [Primary Care Provider] - Follow up/PCP as directed Additional Instructions: Ice pack to tender areas 3 times a day for the next 48 hours. Use Tylenol and ibuprofen for pain control. Follow-up with your primary care provider if you have any further concerns or medical issues.
--- NOTE | 2022-05-22 16:22 | XRAY ---
Indication: Facial injury following fall. Multiple contiguous axial images obtained through the head without contrast. Comparison: February 23, 2018 Normal appearing brain parenchyma, ventricles, and bony calvarium. Visualized paranasal sinuses and mastoid air cells are clear. Impression: Continued normal CT head without contrast exam.
--- NOTE | 2022-05-22 16:24 | XRAY ---
Indication: Facial injury following fall. Multiple contiguous axial images obtained through the facial bones. Sagittal and coronal reformatted images obtained. Comparison: None Axial images negative for acute fracture, suspicious bony lesions, or radiopaque foreign body. Orbits including roof, tejada, and floors intact. Minimal mucosal thickening floor of both maxillary sinuses. Remaining paranasal sinuses and nasal passages are clear. Mild nasal septal deviation to the right. Visualized noncontrasted soft tissues are unremarkable. Visualized cervical spine intact. Impression: Minimal paranasal sinus disease and mild nasoseptal deviation. Remaining CT facial bones normal.
== END 2022-05-22 16:40 | disposition home or self-care (01) ==
LOC: ED 15:15
DX: S00.33XA Contusion of nose, initial encounter (principal); W01.198A Fall on same level from slipping, tripping and stumbling with subsequent striking against other object, initial encounter; Y99.0 Civilian activity done for income or pay; R51.9 Headache, unspecified; Z72.0 Tobacco use
CPT/HCPCS: 70450; 70486; 99282

== ENCOUNTER 2023-09-13 13:46 | Observation (INO) | payer OTHER ==
[2023-09-13 14:28] VITALS: BP 125/63; PULSE 70; RESP 18; TEMP 98.3
[2023-09-13 15:59] LABS: Appearance Clear (Clear); Bacteria None Seen /HPF (None Seen); Bilirubin Negative (Negative); Blood Negative (Negative); Epithelial Cells None Seen /HPF (None Seen); Glucose, Urine Negative (Negative); Hyaline Casts NONE SEEN /LPF (0-2); Ketones Negative (Negative); Leukocyte Esterase Trace (Negative); Nitrite Negative (Negative); Protein,Urine Dip Negative (Negative); RBC 0-2 /HPF (0-5); Urobilinogen 0.2 mg/dL (0.2); WBC 0-2 /HPF (0-5)
[2023-09-13 16:03] LABS: ADD URINE CULTURE? NO (NO)
[2023-09-13 16:08] LABS: Hematocrit 34.7 % (34.1-44.9); Hemoglobin 11.7 g/dL (11.2-15.7); Mean Cell Volume 96.1 fL (79.4-94.8); Mean Corpuscular Hemoglobin 32.4 pg (25.6-32.2); Mean Corpuscular Hgb Concent. 33.7 g/dL (32.2-35.5); Mean Platelet Volume 9.3 fL (9.4-12.3); Platelet Count 291 x10^3/uL (182-369); Red Blood Count 3.61 x10^6/uL (3.93-5.22); Red Cell Distribution Width 12.1 % (11.7-14.4)
[2023-09-13 16:09] LABS: Barbiturate,Urine NEGATIVE (NEGATIVE); Benzodiazepine,Urine NEGATIVE (NEGATIVE); Cocaine,Urine NEGATIVE (NEGATIVE); Methadone,Urine NEGATIVE (NEGATIVE); Opiate,Urine NEGATIVE (NEGATIVE); PCP,Urine NEGATIVE (NEGATIVE); THC,Urine POSITIVE (NEGATIVE)
[2023-09-13 16:13] LABS: Amphetamine,Urine NEGATIVE (NEGATIVE)
--- NOTE | 2023-09-13 16:23 | XRAY ---
Indication: Late care. Anatomy. Cervical length. Two-dimensional OB ultrasound performed. Comparison: None for this . Single intrauterine currently in cephalic presentation. Normal four-chamber heart with heart rate 143 BPM. Normal three-vessel cord and cord insertion. Visualized head, spine, stomach, kidneys, and bladder are unremarkable. Anterior fundal placenta without abruption/previa. Cervical length is 3.8 cm. BPD measures 5.10 cm corresponding to 21 weeks 3 days. HC measures 18.49 cm corresponding to 20 weeks 6 days. AC measures 16.24 cm corresponding to 21 weeks 2 days. FL measures 3.47 cm corresponding to 21 weeks 0 days. KASSANDRA is 10.5 cm. Impression: Single viable intrauterine with mean gestational age 21 weeks 1 day. Expected date confinement is January 23, 2024. No gross anomalies.
[2023-09-13 16:57] LABS: Appearance Cloudy (Clear); Bilirubin Negative (Negative); Blood Negative (Negative); Glucose, Urine Negative (Negative); Ketones Negative (Negative); Leukocyte Esterase Negative (Negative); Nitrite Negative (Negative); Protein,Urine Dip Negative (Negative); Urobilinogen 0.2 mg/dL (0.2)
[2023-09-13 17:11] LABS: ABO TYPING O; Antibody Screen NEGATIVE (NEGATIVE); RH TYPING NEGATIVE
[2023-09-13 17:19] LABS: Bacteria None Seen /HPF (None Seen); Epithelial Cells None Seen /HPF (None Seen); Hyaline Casts NONE SEEN /LPF (0-2); RBC 0-2 /HPF (0-5); WBC 0-2 /HPF (0-5)
[2023-09-13 17:20] LABS: ADD URINE CULTURE? NO (NO)
[2023-09-13 17:26] LABS: CHLAMYDIA DNA NOT DETECTED (NEGATIVE); GC DNA Probe NOT DETECTED (NEGATIVE)
[2023-09-15 11:40] LABS: HBsAg Screen Negative (Negative); Hep C Virus Ab Non Reactive (Non Reactive); RPR Non Reactive (Non Reactive); Rubella Antibodies, IgG 1.81 index (Immune >0.99)
== END 2023-09-13 16:15 | disposition home or self-care (01) ==
LOC: OB 13:46
PROVIDERS: ADMIT Family Medicine; ATTEND Family Medicine
DX: Z34.82 Encounter for supervision of other normal pregnancy, second trimester (principal); Z3A.21 21 weeks gestation of pregnancy
CPT/HCPCS: 36415; 59025; 76805; 80307; 81001; 84443; 85027; 86592; 86762; 86850; 86900; 86901; 87340; 87491; 87591; 99213; G0472; 86803

== ENCOUNTER 2023-12-27 07:59 | Observation (INO) | payer OTHER ==
[2023-12-27 08:35] VITALS: BP 117/69; PULSE 100; RESP 17; TEMP 98.3; O2SAT 96
[2023-12-27 08:40] LABS: Appearance Clear (Clear); Bacteria None Seen /HPF (None Seen); Bilirubin Negative (Negative); Blood Negative (Negative); Epithelial Cells Rare /HPF (None Seen); Glucose, Urine Negative (Negative); Hyaline Casts NONE SEEN /LPF (0-2); Ketones Negative (Negative); Leukocyte Esterase Trace (Negative); Nitrite Negative (Negative); Protein,Urine Dip Negative (Negative); RBC 0-2 /HPF (0-5); Urobilinogen 0.2 mg/dL (0.2); WBC 0-2 /HPF (0-5)
[2023-12-27 08:56] LABS: Amphetamine,Urine NEGATIVE (NEGATIVE); Barbiturate,Urine NEGATIVE (NEGATIVE); Benzodiazepine,Urine NEGATIVE (NEGATIVE); Cocaine,Urine NEGATIVE (NEGATIVE); Methadone,Urine NEGATIVE (NEGATIVE); Opiate,Urine NEGATIVE (NEGATIVE); PCP,Urine NEGATIVE (NEGATIVE); THC,Urine POSITIVE (NEGATIVE)
== END 2023-12-27 09:50 | disposition home or self-care (01) ==
LOC: OB 07:59
PROVIDERS: ADMIT Family Medicine; ATTEND Family Medicine
DX: Z34.83 Encounter for supervision of other normal pregnancy, third trimester (principal); Z3A.36 36 weeks gestation of pregnancy
CPT/HCPCS: 80307; 81001; G0378; G0379

== ENCOUNTER 2024-01-12 06:43 | Inpatient (IN) | payer OTHER ==
[2024-01-12] MEDS ORDERED: Zofran 4 MG/2 ML VIAL IV PRN (07:04)
[2024-01-12] MEDS ORDERED: XYLOCAINE 1% HCL 20 ML MDV IJ PRN (07:04)
[2024-01-12] MEDS ORDERED: TYLENOL EXTRA STRENGTH 500 MG PO PRN (07:04)
[2024-01-12] MEDS ORDERED: Ephedrine Sulfate 50 MG/ML IV PRN (07:10)
[2024-01-12] MEDS: Lactated Ringers 1,000 ML IV ONE (07:18)
[2024-01-12 07:38] LABS: Absolute Neutrophil Ct (ANC) 5.83 x10^3/uL (1.56-6.13); BASOPHIL % 0.3 % (0.1-1.2); Basophil (Absolute #) 0.03 x10^3/uL (0.01-0.08); Eosinophil % 0.5 % (0.7-5.8); Eosinophil (Absolute #) 0.04 x10^3/uL (0.04-0.36); IMMATURE GRAN # 0.04 x10^3u/L (0.001-0.031); IMMATURE GRAN % 0.5 % (0.001-0.429); Lymphocyte (Absolute #) 1.83 x10^3/uL (1.18-3.74); Lymphocytes % 21.3 % (19.3-51.7); Mean Corpuscular Hemoglobin 31.3 pg (25.6-32.2); Mean Corpuscular Hgb Concent. 33.3 g/dL (32.2-35.5); Mean Platelet Volume 9.8 fL (9.4-12.3); Monocyte (Absolute #) 0.82 x10^3/uL (0.24-0.86); Monocytes % 9.5 % (4.7-12.5); Neutrophil % 67.9 % (34.0-71.1); Platelet Count 308 x10^3/uL (182-369); Red Blood Count 3.51 x10^6/uL (3.93-5.22); White Blood Count 8.6 x10^3/uL (3.98-10.04)
[2024-01-12] MEDS: FENTANYL 2 MCG-BUPIV 0.125%-NS 250 ML Epidur 250 ML EPIDURAL SCH (07:41)
[2024-01-12 07:51] LABS: Appearance Clear (Clear); Bacteria None Seen /HPF (None Seen); Bilirubin Negative (Negative); Blood Negative (Negative); Epithelial Cells None Seen /HPF (None Seen); Glucose, Urine Negative (Negative); Hyaline Casts NONE SEEN /LPF (0-2); Ketones Negative (Negative); Leukocyte Esterase Negative (Negative); Nitrite Negative (Negative); Ph 6.5 (4.6-8.0); Protein,Urine Dip Negative (Negative); RBC 0-2 /HPF (0-5); Urobilinogen 0.2 mg/dL (0.2); WBC 0-2 /HPF (0-5)
[2024-01-12 08:01] LABS: Amphetamine,Urine NEGATIVE (NEGATIVE); Barbiturate,Urine NEGATIVE (NEGATIVE); Benzodiazepine,Urine NEGATIVE (NEGATIVE); Cocaine,Urine NEGATIVE (NEGATIVE); Methadone,Urine NEGATIVE (NEGATIVE); Opiate,Urine NEGATIVE (NEGATIVE); PCP,Urine NEGATIVE (NEGATIVE); THC,Urine POSITIVE (NEGATIVE)
[2024-01-12] MEDS: Lactated Ringers 1,000 ML IV SCH (08:18)
[2024-01-12 09:15] LABS: ABO TYPING O; Antibody Screen NEGATIVE (NEGATIVE); RH TYPING NEGATIVE
[2024-01-12 11:17] LABS: Appearance Clear (Clear); Bacteria None Seen /HPF (None Seen); Bilirubin Negative (Negative); Blood Negative (Negative); Epithelial Cells None Seen /HPF (None Seen); Glucose, Urine Negative (Negative); Hyaline Casts NONE SEEN /LPF (0-2); Ketones Negative (Negative); Leukocyte Esterase Negative (Negative); Nitrite Negative (Negative); Ph 6.5 (4.6-8.0); Protein,Urine Dip Negative (Negative); RBC 0-2 /HPF (0-5); Specific Gravity 1.015 (1.005-1.030); Urobilinogen 0.2 mg/dL (0.2); WBC 0-2 /HPF (0-5)
[2024-01-12] MEDS: PITOCIN 30 UNITS/ LR 500 ML 30 UNITS/500 ML PLAST..BAG IV SCH (14:00)
[2024-01-12] MEDS ORDERED: Mylicon 80MG PO PRN (15:01)
[2024-01-12] MEDS ORDERED: Dulcolax 10 MG SUPP PR PRN (15:01)
[2024-01-12] MEDS ORDERED: Anucort-HC SUPPOSITORY PR PRN (15:01)
[2024-01-12] MEDS ORDERED: CORTISONE 1% CREAM TP PRN (15:01)
[2024-01-12] MEDS: LANSINOH 40 GM TOP PRN (16:08)
[2024-01-12] MEDS: TUCKS TP PRN (16:09)
[2024-01-12] MEDS: Dermoplast Spray TP PRN (16:09)
[2024-01-12] MEDS: TYLENOL EXTRA STRENGTH 500 MG PO PRN (19:39)
[2024-01-12] MEDS: Docusate Sodium 100 MG PO SCH (21:43)
[2024-01-12] MEDS: MOTRIN 400 MG PO PRN (21:45)
[2024-01-13 04:59] LABS: Absolute Neutrophil Ct (ANC) 7.63 x10^3/uL (1.56-6.13); BASOPHIL % 0.4 % (0.1-1.2); Basophil (Absolute #) 0.04 x10^3/uL (0.01-0.08); Eosinophil % 0.5 % (0.7-5.8); Eosinophil (Absolute #) 0.05 x10^3/uL (0.04-0.36); Hematocrit 30.9 % (34.1-44.9); Hemoglobin 10.2 g/dL (11.2-15.7); IMMATURE GRAN # 0.06 x10^3u/L (0.001-0.031); IMMATURE GRAN % 0.6 % (0.001-0.429); Lymphocyte (Absolute #) 2.42 x10^3/uL (1.18-3.74); Lymphocytes % 22.3 % (19.3-51.7); Mean Cell Volume 94.8 fL (79.4-94.8); Mean Corpuscular Hemoglobin 31.3 pg (25.6-32.2); Mean Platelet Volume 9.5 fL (9.4-12.3); Monocyte (Absolute #) 0.65 x10^3/uL (0.24-0.86); Neutrophil % 70.2 % (34.0-71.1); Platelet Count 248 x10^3/uL (182-369); Red Blood Count 3.26 x10^6/uL (3.93-5.22); Red Cell Distribution Width 12.8 % (11.7-14.4); White Blood Count 10.9 x10^3/uL (3.98-10.04)
--- NOTE | 2024-01-13 09:01 | PCM.DS ---
Discharge Summary Date of Admission: 01/12/24 08:38 Admitting Physician: SANDRA MCMILLAN Consults: Consults on Case 01/12/24 07:11 Notify Anesthesia Provider PRN 01/12/24 15:05 Navigation ONCE Primary Care Provider: SANDRA MCMILLAN Allergies Allergies No Known Drug Allergies Allergy (Verified 05/22/22 15:33) Hospital Summary - Hospital Course Hospital Course: 28yo arrived in spont labor at 38+wks, uncomplicated vaginal delivery with epidural. dustin po, mild lochia, no complaints. and doing great , well bonded with baby boy - Vitals & Intake/Output Vital Signs: Vital Signs Temperature 97.3 F 01/13/24 01:51 Pulse Rate 73 01/13/24 01:51 Respiratory Rate 18 01/13/24 01:51 Blood Pressure 107/55 01/13/24 01:51 O2 Sat by Pulse Oximetry 98 01/13/24 01:51 Intake & Output: Intake & Output 01/10/24 01/11/24 01/12/24 01/13/24 11:59 11:59 11:59 11:59 Output Total 150 450 Balance -150 -450 Weight 71.214 kg - Lab Result Diagrams: 01/13/24 04:56 Lab Results-Last 24 Hrs: Lab Results-Last 24 Hours 01/12/24 01/12/24 01/12/24 Range/Units 07:16 11:08 15:30 WBC (3.98-10.04) x10^3/uL RBC (3.93-5.22) x10^6/uL Hgb (11.2-15.7) g/dL Hct (34.1-44.9) % MCV (79.4-94.8) fL MCH (25.6-32.2) pg MCHC (32.2-35.5) g/dL RDW (11.7-14.4) % Plt Count (182-369) x10^3/uL MPV (9.4-12.3) fL Gran % (34.0-71.1) % Immature Gran % (Auto) (0.001-0.429) % Nucleat RBC Rel Count (0.00-0.2) % Eos # (Auto) (0.04-0.36) x10^3/uL Immature Gran # (Auto) (0.001-0.031) x10^3u/L Absolute Lymphs (auto) (1.18-3.74) x10^3/uL Absolute Monos (auto) (0.24-0.86) x10^3/uL Absolute Nucleated RBC (0.00-0.012) x10^3u/L Lymphocytes % (19.3-51.7) % Monocytes % (4.7-12.5) % Eosinophils % (0.7-5.8) % Basophils % (0.1-1.2) % Absolute Granulocytes (1.56-6.13) x10^3/uL Basophils # (0.01-0.08) x10^3/uL Urine Color Yellow (Yellow) Urine Appearance Clear (Clear) Urine pH 6.5 (4.6-8.0) Ur Specific [place] 1.015 (1.005-1.030) Urine Protein Negative (Negative) Urine Glucose (UA) Negative (Negative) mg/dL Urine Ketones Negative (Negative) Urine Blood Negative (Negative) Urine Nitrite Negative (Negative) Urine Bilirubin Negative (Negative) Urine Urobilinogen 0.2 (0.2) mg/dL Ur Leukocyte Esterase Negative (Negative) U Hyaline Cast (Auto) NONE SEEN (0-2) /LPF Urine Microscopic RBC 0-2 (0-5) /HPF Urine Microscopic WBC 0-2 (0-5) /HPF Ur Epithelial Cells None Seen (None Seen) /HPF Urine Bacteria None Seen (None Seen) /HPF Urine Culture Reflexed ORDERED SEPARATELY (NO) ABO Group O Rh Factor NEGATIVE Antibody Screen NEGATIVE (NEGATIVE) Screen SEE SEPARATE REPORT 01/13/24 Range/Units 04:56 WBC 10.9 H (3.98-10.04) x10^3/uL RBC 3.26 L (3.93-5.22) x10^6/uL Hgb 10.2 L (11.2-15.7) g/dL Hct 30.9 L (34.1-44.9) % MCV 94.8 (79.4-94.8) fL MCH 31.3 (25.6-32.2) pg MCHC 33.0 (32.2-35.5) g/dL RDW 12.8 (11.7-14.4) % Plt Count 248 (182-369) x10^3/uL MPV 9.5 (9.4-12.3) fL Gran % 70.2 (34.0-71.1) % Immature Gran % (Auto) 0.6 H (0.001-0.429) % Nucleat RBC Rel Count 0.0 (0.00-0.2) % Eos # (Auto) 0.05 (0.04-0.36) x10^3/uL Immature Gran # (Auto) 0.06 H (0.001-0.031) x10^3u/L Absolute Lymphs (auto) 2.42 (1.18-3.74) x10^3/uL Absolute Monos (auto) 0.65 (0.24-0.86) x10^3/uL Absolute Nucleated RBC 0.00 (0.00-0.012) x10^3u/L Lymphocytes % 22.3 (19.3-51.7) % Monocytes % 6.0 (4.7-12.5) % Eosinophils % 0.5 L (0.7-5.8) % Basophils % 0.4 (0.1-1.2) % Absolute Granulocytes 7.63 H (1.56-6.13) x10^3/uL Basophils # 0.04 (0.01-0.08) x10^3/uL Urine Color (Yellow) Urine Appearance (Clear) Urine pH (4.6-8.0) Ur Specific [place] (1.005-1.030) Urine Protein (Negative) Urine Glucose (UA) (Negative) mg/dL Urine Ketones (Negative) Urine Blood (Negative) Urine Nitrite (Negative) Urine Bilirubin (Negative) Urine Urobilinogen (0.2) mg/dL Ur Leukocyte Esterase (Negative) U Hyaline Cast (Auto) (0-2) /LPF Urine Microscopic RBC (0-5) /HPF Urine Microscopic WBC (0-5) /HPF Ur Epithelial Cells (None Seen) /HPF Urine Bacteria (None Seen) /HPF Urine Culture Reflexed (NO) ABO Group Rh Factor Antibody Screen (NEGATIVE) Screen Discharge Exam General Appearance: no apparent distress Neurologic Exam: alert, oriented x 3 Respiratory Exam: normal breath sounds, lungs clear, No respiratory distress Cardiovascular Exam: regular rate/rhythm, normal heart sounds Gastrointestinal/Abdomen Exam: soft, other (fundus firm), No tenderness, No mass Extremity Exam: normal inspection, normal range of motion Final Diagnosis/Problem List - Final Discharge Diagnosis/Problem (1) Spontaneous vaginal delivery Current Visit: No Status: Acute Code(s): O80 - ENCOUNTER FOR FULL-TERM UNCOMPLICATED DELIVERY - Discharge Disposition: Home, Self-Care Condition: Stable Prescriptions: New Vit86/Iron/Folic Acid [Nestabs Tablet] 1 each PO DAILY #30 tablet Follow up with: SANDRA MCMILLAN MD [Primary Care Provider] - 6 weeks
[2024-01-13] MEDS: FERREX 150 PO SCH (09:04)
[2024-01-13] MEDS: Adacel Vial IM ONE (09:04)
[2024-01-14 02:31] VITALS: O2SAT 99
[2024-01-14 06:11] LABS: RPR Non Reactive (Non Reactive)
[2024-01-14 07:38] LABS: HIV Screen 4th Generation wRfx Non Reactive (Non Reactive)
--- NOTE | 2024-01-14 08:09 | PCM.DS ---
Discharge Summary Date of Admission: 01/12/24 08:38 Admitting Physician: SANDRA MCMILLAN Consults: Consults on Case 01/12/24 07:11 Notify Anesthesia Provider PRN 01/12/24 15:05 Navigation ONCE Primary Care Provider: SANDRA MCMILLAN Allergies Allergies No Known Drug Allergies Allergy (Verified 05/22/22 15:33) Hospital Summary - Hospital Course Hospital Course: patient had uncomplicated vaginal delivery, doing great . her son, mild lochia, no concerns. - Vitals & Intake/Output Vital Signs: Vital Signs Temperature 97.4 F 01/14/24 02:00 Pulse Rate 73 01/14/24 02:00 Respiratory Rate 16 01/14/24 02:00 Blood Pressure 106/59 01/14/24 02:00 O2 Sat by Pulse Oximetry 99 01/14/24 02:00 Intake & Output: Intake & Output 01/11/24 01/12/24 01/13/24 01/14/24 11:59 11:59 11:59 11:59 Output Total 150 450 Balance -150 -450 Weight 71.214 kg - Lab Result Diagrams: 01/13/24 04:56 Lab Results-Last 24 Hrs: Lab Results-Last 24 Hours 01/12/24 Range/Units Unknown RPR Non Reactive (Non Reactive) HIV 1&2 Ab/P24 Ag 4thGn Non Reactive (Non Reactive) Micro Results-Entire Visit: Microbiology 01/12/24 11:08 Urine Culture - Final Urine, Catheterized NO GROWTH Discharge Exam General Appearance: no apparent distress Neurologic Exam: alert, oriented x 3 Respiratory Exam: normal breath sounds, lungs clear, No respiratory distress Cardiovascular Exam: regular rate/rhythm, normal heart sounds Gastrointestinal/Abdomen Exam: soft, No tenderness, No mass Extremity Exam: normal inspection, normal range of motion Skin Exam: normal color, warm, dry Final Diagnosis/Problem List - Final Discharge Diagnosis/Problem (1) Spontaneous vaginal delivery Current Visit: No Status: Acute Code(s): O80 - ENCOUNTER FOR FULL-TERM UNCOM PLICATED DELIVERY - Discharge Disposition: Home, Self-Care Condition: Stable Prescriptions: New Vit86/Iron/Folic Acid [Nestabs Tablet] 1 each PO DAILY #30 tablet Follow up with: SANDRA MCMILLAN MD [Primary Care Provider] - 6 weeks
[2024-01-14 08:16] VITALS: BP 114/69; PULSE 78; RESP 18; TEMP 97.8
[2024-01-14] MEDS: Rhogam Plus 300 MCG IM ONE (09:21)
== END 2024-01-14 14:05 | disposition home or self-care (01) | DRG 807 ==
LOC: INTOOBSV 06:43 → UNDOADMOB 06:43 → OB 06:43 → OBSVTOIN 06:43 → OB 08:38 → OBSVTOIN 08:38 → INTOOBSV 08:38 → UNDOADMOB 08:38
PROVIDERS: ADMIT Family Medicine; ATTEND Family Medicine
PROC: 10E0XZZ Delivery of Products of Conception, External Approach (ICD-10-PCS; principal; 2024-01-12)
DX: O80 Encounter for full-term uncomplicated delivery (principal); Z37.0 Single live birth; Z3A.38 38 weeks gestation of pregnancy
CPT/HCPCS: 36415; 80307; 81001; 82077; 85025; 85461; 86592; 86850; 86900; 86901; 87086; 87389; 90471; 90715; 96372; G0378; J2590; J2790; A9270-GY

== ENCOUNTER 2024-04-28 06:36 | Day surgery (SDC) | payer OTHER ==
[2024-04-28] MEDS: Lactated Ringers 1,000 ML IV ONE (06:50)
[2024-04-28] MEDS: CEFAZOLIN 1 GM/100 ML NACL IVPB 1 GM/100 ML IVPB IV ONE (06:50)
[2024-04-28 06:52] LABS: HCG URINE TEST NEGATIVE (NEGATIVE)
[2024-04-28 07:02] VITALS: RESP 16
[2024-04-28] MEDS ORDERED: Xylocaine-Mpf 2% 5 Ml Vial ONE (07:02)
[2024-04-28] MEDS ORDERED: dexAMETHasone sodium phosphate ONE (07:02)
[2024-04-28] MEDS ORDERED: Zofran 4 MG/2 ML VIAL ONE (07:02)
[2024-04-28] MEDS ORDERED: propofoL IV ONE ×2 (07:02→08:30)
[2024-04-28] MEDS ORDERED: SUBLIMAZE 100 MCG/2 ML ONE (07:03)
[2024-04-28] MEDS ORDERED: Versed 2 MG/2 ML Injection ONE (08:10)
[2024-04-28] MEDS ORDERED: ASTRINGYN 8 GM TP ONE (08:15)
[2024-04-28] MEDS ORDERED: XYLOCAINE 1%/Epi 1:100000 MDV 20 ML ONE (08:15)
[2024-04-28] MEDS ORDERED: Lugol's Solution ONE (08:15)
[2024-04-28] MEDS ORDERED: Hydromorphone 1 mg/ml Injection ONE (09:27)
[2024-04-28 10:15] VITALS: BP 116/65; PULSE 61; TEMP 98.2; O2SAT 99
--- NOTE | 2024-04-29 08:27 | OP ---
SURGERY DATE/TIME: 04/28/2024 [id number] PREOPERATIVE DIAGNOSIS: Severe cervical dysplasia. POSTOPERATIVE DIAGNOSIS: Severe cervical dysplasia. PROCEDURE: Loop electrosurgical excision procedure or LEEP. SURGEON: Gage Gray D.O. SENIOR FINANCIAL: Desiree Tejeda. ANESTHESIA: General. ESTIMATED BLOOD LOSS: Minimal. COMPLICATIONS: None. FINDINGS: The risks, benefits, indications, and alternatives of the procedure were reviewed with the patient prior to the procedure. Patient understood the risk of infection, bleeding, bowel injury, bladder injury, ureteral injury, uterine perforation, pelvic infection, incompetent cervix that may be associated with this procedure and desires to have the surgery as a possible means to alleviate her current medical condition. DESCRIPTION OF PROCEDURE AND FINDINGS: At this point, patient was taken to the operating room, given general sedation, placed in the dorsal lithotomy position, prepped and draped in the usual sterile fashion. A coated bivalve speculum was then placed in the patient's vagina, and the cervix was then injected circumferentially with 1% lidocaine with epinephrine and approximately 10 mL was used. At this point, the loop instrument was used to excise the ectocervical tissue wherein a depth of 7 to 8 mm of ectocervical tissue was removed in a [id number] fashion using the instrument and an additional 2 to 3 mm of endocervical tissue was excised in a similar fashion in a [id number] motion. At this point, the loop audiology assistant ball was then placed on the surface of the cervix where continued bleeding was noted and a #1-0 Vicryl suture was used to alleviate the bleeding. Two sutures were placed in the 6 o'clock region of the cervix and the bleeding was noted to have subsided. From this point, Monsel solution was placed on the surface of the cervix. At this point, all instruments were then removed from the patient's vaginal region. The patient was then taken out of the dorsal lithotomy position and was taken out of anesthesia and was then taken to the recovery room in stable condition. All instruments and laps were accounted for x2.
== END 2024-04-28 10:17 | disposition home or self-care (01) ==
LOC: SDC 06:36
PROVIDERS: ATTEND Obstetrics & Gynecology
DX: D06.9 Carcinoma in situ of cervix, unspecified (principal)
CPT/HCPCS: 57460; 81025; J0690; J1100; J1171; J2250; J2405; J2704; J3010; A9270-GY